=== PATIENT | male | born 1990 | race Caucasian/White ===

== ENCOUNTER 2017-07-31 20:34 | Emergency (ER) | payer SELFPAY ==
[2017-07-31 20:42] VITALS: O2SAT 98
[2017-07-31] MEDS ORDERED: Sodium Chloride 0.9% 1,000 ML ONE ×2 (20:46→23:00)
--- NOTE | 2017-07-31 21:02 | C.PDOC ---
History Of Present Illness Pt states that he went to the bathroom to wash his hands and felt lightheaded and felt like passing out. laid himself down. States that he might have passed out for a second. He has had some diarrhea after a bad lunch, and felt better after vomiting X1. Contrary to initial statement, pt states that he did not hit his head. His father noticed the event, and concurs - HPI Time Seen by Provider: 07/31/17 21:02 Chief Complaint (Nursing): Trauma History Per: Patient History/Exam Limitations: no limitations Onset/Duration Of Symptoms: Mins Severity: Mild Pain Scale Rating Of: 2 Associated Symptoms: Dizziness, LOC Recent travel outside of the [place]: No Additional History Per: Family Past Medical History Reviewed: Historical Data, Nursing Documentation, Vital Signs Vital Signs: Last Vital Signs Temp 97.7 F 07/31/17 20:39 Pulse 69 07/31/17 20:39 Resp 18 07/31/17 20:39 BP 102/54 L 07/31/17 20:39 Pulse Ox 98 07/31/17 21:33 Family History: States: No Known Family Hx - Social History Hx Tobacco Use: No Hx Alcohol Use: No Hx Substance Use: No Review Of Systems Constitutional: Negative for: Fever, Chills Eyes: Negative for: Redness Cardiovascular: Negative for: Chest Pain Respiratory: Negative for: Shortness of Breath Gastrointestinal: Positive for: Nausea, Vomiting. Negative for: Abdominal Pain Musculoskeletal: Negative for: Back Pain Skin: Negative for: Rash Neurological: Negative for: Weakness, Altered Mental Status, Headache Psych: Negative for: Anxiety Physical Exam - Physical Exam Appears: Non-toxic, No Acute Distress Skin: Warm, Dry Head: Normacephalic Eye(s): bilateral: Normal Inspection, PERRL, EOMI Oral Mucosa: Moist Neck: Trachea Midline, No Paracervical Tenderness, Supple Chest: Symmetrical Cardiovascular: Rhythm Regular Respiratory: No Rales, No Rhonchi, No Wheezing Gastrointestinal/Abdominal: Soft, No Tenderness, No Distention Back: Normal Inspection Extremity: Normal ROM Extremity: Bilateral: Atraumatic Pulses: Left Dorsalis Pedis: Normal, Right Dorsalis Pedis: Normal Neurological/Psych: Oriented x3, Normal Speech, Normal Cognition ED Course And Treatment - Laboratory Results Result Diagrams: 07/31/17 21:13 07/31/17 21:13 ECG: Interpreted By Me, Viewed By Me ECG Rhythm: Sinus Rhythm (62), R BBB O2 Sat by Pulse Oximetry: 98 Pulse Ox Interpretation: Normal Reevaluation Time: 23:00 Reassessment Condition: Improved Disposition Counseled Patient/Family Regarding: Studies Performed, Diagnosis, Need For Followup - Disposition Referrals: [facility] [Outside] [facility] [Outside] Disposition: HOME/ ROUTINE Disposition Time: 21:02 Condition: FAIR Additional Instructions: Please return if symptoms recur Instructions: Vasovagal Response Forms: [facility] ([place]) - Clinical Impression Clinical Impression: Vaso vagal episode
[2017-07-31] MEDS ORDERED: Sodium Chloride 0.9% 1,000 ML IV ONE ×2 (21:04→22:37)
[2017-07-31 21:18] LABS: BASO % 0.5 % (0.0-2.0); EOS # 0.2 K/uL (0.0-0.7); HEMOGLOBIN 13.9 g/dL (12.0-18.0); LYMPH % 34.7 % (20.0-40.0); MEAN CELL VOLUME 82.3 fL (80.0-94.0); MEAN CORPUSCULAR HEMOGLOBIN 28.3 pg (27.0-31.0); MEAN CORPUSCULAR HGB CONC 34.4 g/dL (33.0-37.0); MEAN PLATELET VOLUME 8.4 fL (7.2-11.7); MONO # 0.4 K/uL (0.0-0.8); MONO % 6.8 % (0.0-10.0); NEUT # 3.1 K/uL (1.8-7.0); RBC 4.91 Mil/uL (4.40-5.90); WHITE BLOOD COUNT 5.7 K/uL (4.8-10.8)
[2017-07-31 21:29] LABS: ALB/GLOB RATIO 1.3 (1.0-2.1); ALBUMIN 4.3 g/dL (3.5-5.0); ALT/SGPT 27 U/L (21-72); AST/SGOT 35 U/L (17-59); BLOOD UREA NITROGEN 15 mg/dL (9-20); CALCIUM 9.1 mg/dl (8.6-10.4); GFR AFRICAN-AMERICAN > 60; GFR NON-AFRICAN AMERICAN > 60
--- NOTE | 2017-07-31 22:44 | CT ---
EXAM: CT Head Without Intravenous Contrast CLINICAL HISTORY: 27 years old, male; Signs and symptoms; Syncope and collapse TECHNIQUE: Axial computed tomography images of the head/brain without intravenous contrast. All CT scans at this facility use one or more dose reduction techniques, viz.: automated exposure control; ma/kV adjustment per patient size (including targeted exams where dose is matched to indication; i.e. head); or iterative reconstruction technique. Coronal and sagittal reformatted images were created and reviewed. COMPARISON: No relevant prior studies available. FINDINGS: Brain: No intracranial hemorrhage. 2.1 x 0.7 x 1.0 cm arachnoid cyst vs prominent extra-axial space along right middle cranial fossa. 1.7 x 1.7 x 2.0 cm arachnoid cyst vs prominent extra-axial space along left middle cranial fossa. No edema. Ventricles: No hydrocephalus. Bones/joints: No acute fracture. Soft tissues: Unremarkable. Sinuses: Scattered mild mucosal thickening of ethmoid sinuses. Mastoid air cells: No mastoid effusion. Orbits: Unremarkable as visualized. IMPRESSION: 1. No definite acute intracranial abnormality. 2. Incidental/non-acute findings are described above.
[2017-07-31 23:24] VITALS: BP 102/55; PULSE 63; RESP 16; TEMP 97.6
== END 2017-07-31 23:36 | disposition home or self-care (01) ==
LOC: SUPCPDRO 20:34 → C.ER 20:34
DX: R55 Syncope and collapse (principal)
CPT/HCPCS: 70450; 80053; 82948; 85025; 96360; 96361; 99285; J7040

== ENCOUNTER 2018-09-26 09:08 | Outpatient (CLI) | payer BC | END 2018-09-26 09:09 | disposition home or self-care (01) | LOC: C.LAB 09:08 ==